=== PATIENT | male | born 1980 | race Caucasian/White ===

== ENCOUNTER 2016-06-08 16:27 | Outpatient (CLI) | payer MEDICAID, OTHER | END 2016-06-08 16:28 | disposition home or self-care (01) | DX: M25.571 Pain in right ankle and joints of right foot (principal) ==

== ENCOUNTER 2022-04-14 20:12 | Emergency (ER) | payer BC, MEDICAID ==
[2022-04-14 20:34] VITALS: BP 166/98
[2022-04-14] MEDS ORDERED: DOXYCYCLINE 100 MG TABLET PO STA (22:17)
[2022-04-14] MEDS ORDERED: CLINDAMYCIN 150 MG CAPSULE PO STA (22:17)
--- NOTE | 2022-04-14 22:23 | ED Physician Documentation ---
PD HPI UPPER EXT INJURY - Stated complaint Stated Complaint: R HAND CAT BITE - Chief complaint Chief Complaint: Ext Problem - History obtained from History obtained from: Patient - Additonal information Additional information: Patient is a 41-year-old male with no significant past medical history prese nting for evaluation of a cat bite to his right hand that occurred yesterday evening. Patient was in a neighborhood that it was not his own and sitting outside when a cat in the neighborhood came up to him. He was petting the cat when it then bit And scratch at them. Patient's tetanus is up-to-date. He has noticed Some redness That is appeared today which prompted him to come to the emergency department. He is unsure of who the cat belongs to.He reports it was acting normally prior to biting him. Review of Systems Constitutional: denies: Fever Nose: denies: Congestion Cardiac: denies: Chest pain / pressure Respiratory: denies: Dyspnea GI: denies: Abdominal Pain Skin: reports: Rash, Lesions Musculoskeletal: reports: Extremity swelling PD PAST MEDICAL HISTORY - Past Medical History Past Medical History: Yes Cardiovascular: Hypertension Respiratory: None Neuro: None Endocrine/Autoimmune: None GI: None : None HEENT: None Psych: None Musculoskeletal: None Derm: None - Past Surgical History Past Surgical History: Yes Ortho: Other - Present Medications Home Medications: Ambulatory Orders Medication Instructions Recorded Confirmed Doxycycline Hyclate 100 mg PO BID #14 tab 04/14/22 clindamycin HCL [Cleocin HCl] 300 mg PO QID #28 cap 04/14/22 - Allergies Allergies/Adverse Reactions: Allergies Allergy/AdvReac Type Severity Reaction Status Date / Time amoxicillin [Amoxicillin] Allergy Mild Rash Verified 04/14/22 20:33 - Social History Does the pt smoke?: No Smoking Status: Never smoker Does the pt drink ETOH?: Yes Does the pt have substance abuse?: No - Immunizations Immunizations are current?: Yes - POLST Patient has POLST: No PD ED PE NORMAL - General General: Alert and oriented X 3, No acute distress, Well developed/nourished - HEENT HEENT: Atraumatic - Neck Neck: Supple, no meningeal sign - Cardiac Cardiac: Strong equal pulses - Respiratory Respiratory: No respiratory distress - Derm Derm: Other (4 puncture wounds to right hand Near thenar eminence, mild surrounding erythema to dorsum of right hand; No fluctuance, no abnormal drainage; Mild swelling to area) - Extremities Extremities: No tenderness to palpate, Normal ROM s pain PD ED PE EXPANDED - Extremities NATAN UE/Hands Visual: 1 - rash (Faint erythema), laceration (2 puncture wounds) 2 - laceration (2 puncture wounds) Results - Vitals Vitals: Vital Signs - 24 hr 04/14/22 04/14/22 20:27 22:05 Temperature 36.7 C Heart Rate 75 Respiratory 17 16 Rate Blood Pressure 166/98 H O2 Saturation 98 Oxygen O2 Source Room air PD MEDICAL DECISION MAKING - ED course ED course: Patient with cat bite to right hand 24 hours ago. At there is mild erythema near puncture wounds with no fluctuance or abnormal drainage. Patient has normal range of motion at all joints of the hand. There is no lymphangitic spread and his vital signs are stable. He has an amoxicillin allergy so will place on doxycycline and clindamycin. Patient counseled on strict return precautions for any worsening symptoms.His tetanus is up-to-date. Departure - Departure Disposition: 01 Home, Self Care Clinical Impression: Cat bite of right hand with infection Qualifiers: Encounter type: initial encounter Qualified Code(s): S61.451A - Open bite of right hand, initial encounter Condition: Stable Instructions: ED Bite Cat Prescriptions: clindamycin HCL [Cleocin HCl] 300 mg PO QID #28 cap Doxycycline Hyclate 100 mg PO BID #14 tab Comments: You have an infection to your right hand from a recent cat bite. I started you on 2 antibiotics as you are allergic to amoxicillin. I have sent the prescriptions to [facility] in [place]. If you have any worsening of the redness, swelling or abnormal drainage, increased pain or any other concerns please return to the emergency department. Discharge Date/Time: 04/14/22 22:26
== END 2022-04-14 22:26 | disposition home or self-care (01) ==
LOC: ED 20:12
DX: S61.451A Open bite of right hand, initial encounter (principal); L08.9 Local infection of the skin and subcutaneous tissue, unspecified; W55.01XA Bitten by cat, initial encounter; Z88.0 Allergy status to penicillin; I10 Essential (primary) hypertension
CPT/HCPCS: 99282; A9270